=== PATIENT | male | born 1960 | race American Indian/Alaskan Native ===

== ENCOUNTER 2019-06-16 09:20 | Outpatient (CLI) | payer OTHER ==
--- NOTE | 2019-06-16 15:44 | Ultrasound Report ---
ULTRASOUND ABDOMEN, COMPLETE INDICATION: R10.9 RECURRENT ABDOMINAL PAIN. COMPARISON: No relevant prior imaging study available. FINDINGS: Pancreas: No significant abnormality. Abdominal Aorta: No significant abnormality. IVC: No significant abnormality. Liver: The liver measures 12.5 cm in length. No significant abnormality. Normal hepatopedal blood fl ow in the main portal vein. Gallbladder: No significant abnormality. Bile ducts: No significant abnormality. Common bile duct measures 4 mm. Kidneys: Right: 11.2 cm in length. No significant abnormality. Left: 9.4 cm in length. No signifi cant abnormality. Spleen: No significant abnormality. Free fluid: None. Additional Findings: None. IMPRESSION: No sonographic abnormality of the abdomen. Signer Name: Manoj Lindsey Jr, MD Signed: 06/16/2019 3:40 PM Workstation Name: [id number]
== END 2019-06-16 09:21 | disposition home or self-care (01) ==
LOC: US 09:20
PROVIDERS: ATTEND Internal Medicine
DX: R10.9 Unspecified abdominal pain (principal)
CPT/HCPCS: 76700

== ENCOUNTER 2020-09-15 08:08 | Emergency (ER) | payer OTHER ==
[2020-09-15 08:24] VITALS: BP 148/73
[2020-09-15] MEDS ORDERED: IPRATROPIUM/ALBUTEROL SULFATE 3 ML AMPUL.NEB IH ONE ×2 (08:54→12:12)
[2020-09-15] MEDS ORDERED: methylPREDNISolone Sod Succinate 125 MG/2 ML INJ IV ONE (08:54)
--- NOTE | 2020-09-15 08:57 | Event Note ---
ED Screening Note Date of service: 09/15/20 Time: 08:55 ED Screening Note: 60-year-old male presents complaining of cough and chest pain and generalized weakness. Onset x2 weeks. PE: Frequent intermittent dry cough; wheezing This initial assessment/diagnostic orders/clinical plan/treatment(s) is/are subject to change based on patients health status, clinical progression and re- assessment by fellow clinical providers in the ED. Further treatment and workup at subsequent clinical providers discretion. Patient/guardian urged not to elope from the ED as their condition may be serious if not clinically assessed and managed. Initial orders include: EKG ordered in triage CXR, troponin CBC, CMP DuoNeb treatment IV Solu-Medrol
[2020-09-15 09:32] LABS: Alanine Aminotransferase 20 units/L (7-56); Albumin 3.7 g/dL (3.9-5); BUN/Creatinine Ratio 15; Blood Urea Nitrogen 12 mg/dL (9-20); Calcium 8.3 mg/dL (8.4-10.2); Hemolysis Index 7
[2020-09-15 09:41] LABS: Hematocrit 35.1 % (35.5-45.6); Hemoglobin 11.5 gm/dl (11.8-15.2); Mean Corpuscular HGB Conc 33 % (32-34); Mean Corpuscular Volume 89 fl (84-94); Platelet Count 157 K/mm3 (140-440); Red Blood Count 3.94 M/mm3 (3.65-5.03); Red Cell Distribution Width 13.6 % (13.2-15.2)
--- NOTE | 2020-09-15 09:59 | XRay Report ---
XR chest routine 2V INDICATION / CLINICAL INFORMATION: COUGH/CP. COMPARISON: None available. FINDINGS: SUPPORT DEVICES: None. HEART /PULMONARY VASCULATURE: No significant abnormality. LUNGS / PLEURA: No significant pulmonary or pleural abnormality. No pneumothorax. ADDITIONAL FINDINGS: No significant additional findings. IMPRESSION: 1. No acute findings. Signer Name: Luis Shahid MD Signed: 09/15/2020 9:54 AM Workstation Name: [id number]
--- NOTE | 2020-09-15 12:05 | Emergency Department Report ---
Minor Respiratory - HPI Chief Complaint: Upper Respiratory Infection Stated Complaint: CHEST PAIN/COUGHING/WEAKNESS Duration: 2 week Minor Respiratory: Yes Able to Tolerate Fluids, Yes Cough, Yes Shortness of Breath, Yes Fever, No Rhinorrhea, No Sore Throat, No Ear Pain, No Sick Contacts, No Hemoptysis, No Chest Pain Other History: 60-year-old male presents to the emergency room for 2- week history of cough and mild shortness of breath. Patient states that he was seen by his primary care provider on Wednesday and was placed on omeprazole and a azithromycin 500 mg daily for 4 days. Patient is taking nothing for his cough. No nausea no vomiting no loss of taste or smell or diarrhea. No Covid positive contact. Past medical history of acid reflux. ED Review of Systems ROS: Stated complaint: CHEST PAIN/COUGHING/WEAKNESS Other details as noted in HPI Comment: All other systems reviewed and negative ED Past Medical Hx - Past Medical History Additional medical history: ACID REFLUX - Surgical History Past Surgical History?: No - Social History Smoking Status: Never Smoker Substance Use Type: None - Medications Home Medications: Home Medications Medication Instructions Recorded Confirmed Last Taken Type Albuterol Sulfate [Proventil Hfa] 2 puff IH QID PRN #1 hfa.aer.ad 09/15/20 Unknown Rx Minor Respiratory Exam - Exam General: Vital signs noted. No distress. Alert and acting appropriately. HEENT: Yes Moist Mucous Membranes, No Pharyngeal Erythema, No Pharyngeal Exudates, No Rhinorrhea, No Conjuctival Injection, No Frontal Tenderness, No Maxillary Tenderness Neck: Yes Supple, No Adenopathy Lungs: Yes Good Air Exchange, Yes Cough, No Wheezes, No Ronchi, No Stridor, No Labored Respirations, No Retractions, No Use of Accessory Muscles, No Other Abnormal Lung Sounds Heart: Yes Regular, No Murmur Abdomen: Yes Normal Bowel Sounds, No Tenderness, No Peritoneal Signs Skin: No Rash, No Edema Neurologic: Alert and oriented, no deficits. Musculoskeletal: Unremarkable. ED Course Vital Signs 09/15/20 09/15/20 08:21 08:24 Temperature 100 F H Pulse Rate 95 H Respiratory 18 Rate Blood Pressure 148/73 O2 Sat by Pulse 96 Oximetry - Reevaluation(s) Reevaluation #1: 09/15/20 13:49 Patient reports he feels much better. ED Medical Decision Making - Lab Data Result diagrams: 09/15/20 09:00 09/15/20 09:00 - Radiology Data Radiology results: report reviewed Ordering Physician: KULWINDER RIZO Date of Service: 09/15/20 Procedure(s): XR chest routine 2V Accession Number(s): [id number] cc: KULWINDER RIZO Fluoro Time In Minutes: XR chest routine 2V INDICATION / CLINICAL INFORMATION: COUGH/CP. COMPARISON: None available. FINDINGS: SUPPORT DEVICES: None. HEART /PULMONARY VASCULATURE: No significant abnormality. LUNGS / PLEURA: No significant pulmonary or pleural abnormality. No pneumothor ax. ADDITIONAL FINDINGS: No significant additional findings. IMPRESSION: 1. No acute findings. Signer Name: Ryley Shahid MD Signed: 09/15/2020 9:54 AM Workstation Name: [id number] Transcribed By: Dictated By: RYLEY SHAHID MD Electronically Authenticated By: RYLEY SHAHID MD Signed Date/Time: 09/15/20953 DD/ 3 TD/TT: - Medical Decision Making 60-year-old male presents to the emergency room for 2-week history of cough and mild shortness of breath. Patient states that he was seen by his primary care provider on Wednesday and was placed on omeprazole and a azithromycin 500 mg daily for 4 days. Patient is taking nothing for his cough. No nausea no vomiting no loss of taste or smell or diarrhea. No Covid positive contact. Past medical history of acid reflux. Critical care attestation.: If time is entered above; I have spent that time in minutes in the direct care of this critically ill patient, excluding procedure time. ED Disposition Clinical Impression: Cough Disposition: DC-01 TO HOME OR SELFCARE Is pt being admited?: No Does the pt Need Aspirin: No Condition: Stable Instructions: Cough, Adult, [id number]-[id number], Cool Mist Vaporizer Additional Instructions: Continue with medications that were prescribed by your primary care provider. I recommend taking [id number] Robitussin DM to help with your cough. You can use your inhaler that I am prescribing for you to help with the cough. Complete steroids as prescribed. Prescriptions: Albuterol Sulfate [Proventil Hfa] 2 puff IH QID PRN #1 hfa.aer.ad PRN Reason: Cough Referrals: PRIMARY CARE, [Primary Care Provider] - 3-5 Days Forms: Work/School Release Form(ED)
[2020-09-15] MEDS ORDERED: ACETAMINOPHEN 325 MG TAB PO ONE (12:06)
[2020-09-15] MEDS ORDERED: methylPREDNISolone Sod Succinate 125 MG/2 ML INJ ONE (12:21)
== END 2020-09-15 14:20 | disposition home or self-care (01) ==
LOC: ED 08:08
DX: R05 Cough (principal); R07.89 Other chest pain; Z79.899 Other long term (current) drug therapy; Z88.6 Allergy status to analgesic agent
CPT/HCPCS: 36415; 71046; 80053; 84484; 85027; 93005; 94640; 96374; 99284; J2930